=== PATIENT | male | born 1975 | race Caucasian/White ===

== ENCOUNTER 2023-06-13 15:33 | Outpatient (AMB) | payer OTHER, SELFPAY ==
--- NOTE | 2023-06-13 15:39 | A.OFFVIS_ITS ---
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 Required: No Allergies No Known Allergies Allergy (Verified 06/13/23 15:48) Medication List - Last Reconciled 06/13/23 by BRODY Vargas albuterol sulfate 90 mcg/actuation 2 puffs inhalation QID PRN amlodipine 10 mg PO DAILY aspirin 81 mg PO DAILY atorvastatin 20 mg PO DAILY chlorthalidone 25 mg PO QAM cholecalciferol (vitamin D3) 1,250 mcg PO QWEEK dulaglutide (Trulicity) mg subcut ferrous sulfate 325 mg PO QAM ferrous sulfate (FeroSul) 325 mg PO DAILY irbesartan 300 mg PO DAILY irbesartan 150 mg PO DAILY HPI HPI Comments History of Present Illness Details [place] [facility] [place] [facility] [place]. He heard about our program from his insurance company. His goal is to lose weight and achieve a healthy lifestyle as well as to improve, if not resolve, obesity related medical conditions, including DM, HTN, HLD. He reports first being concerned about his weight 18 yeard ago with dx of DM, highest weight to date was 325. Current weight is 308.6 pounds with a BMI of 43. He has tried multiple methods of weight loss including fad diets exercise, [facility] weight loss program without permanent results. He lives with his and son. 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 He wakes at:?7 am, and goes to bed at?10 pm. Dinner is at 6 pm. Breakfast: Pure protein bar or shake AM snack: skip Lunch: fast food PM snack: chips Dinner: pasta, burgers, mac and cheese, vegs After dinner: rare SF itialian ice or SF chocolate bars Other snacks: as above Liquids: 60-80 oz water, diet ole magaly, no juice Alcohol/marijuana/tobacco intake: no etoh, smoke cannabis 3 x per month, no tobacco Exercise: 3 x per week, walking 1.5 miles in 30 minutes. 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 Hx of foot surgery Hx of pelvic surgery Social History (Updated 06/13/23 @ 15:55 by Suzette Guajardo CMA) Alcohol intake: current Alcohol intake frequency: holidays/special occasions only Patient Tobacco Use Status: Never used Tobacco Review of Systems Const All systems reviewed & are unremarkable except as noted in HPI and below Physical Exam Vital Signs: Last Vital Signs Temp 98.6 F 06/13/23 15:59 Pulse 104 H 06/13/23 15:59 BP 142/78 H 06/13/23 15:59 Pulse Ox 95 06/13/23 15:59 Oxygen Delivery Method Room Air 06/13/23 15:59 BMI result Body Mass Index 43.0 Const General: cooperative, healthy appearing and no acute distress Orientation/consciousness: patient oriented x3 HEENT Head: Yes normal to inspection Ears: hearing grossly normal bilaterally General nose exam: Normal external nose present Face and sinus: Yes normal facial exam Eyes General: appearance normal, both eyes and all related structures Resp Effort & Inspection: normal respiratory effort Auscultation: clear to auscultation bilaterally Cardio Rate: regular rate Rhythm: regular rhythm Heart sounds: S1 normal heart sound present and S2 normal heart sound present GI Inspection: Yes normal to inspection, No distended and Yes obesity Palpation (GI): Soft to palpation, nontender and no guarding Auscultation: normal bowel sounds Skin General skin exam: no rashes or lesions noted Neuro General: patient oriented x3 Extrem General: No edema Psych Appearance: grossly normal Mental Status: mental status grossly normal Speech and movement: Normal speech and movement present Affect: normal affect Attitude: cooperative Assessment & Plan Assessment & Plan (1) Morbid obesity: Code(s): E66.01 - Morbid (severe) obesity due to excess calories Plan: This is a?48 yo male who will start our SWL program to prepare for bariatric surgery.? Blood work, h pylori , CXR, ECG, Abd US and UGI have been ordered. He is being scheduled for RD and BH initial consultations. He will start SWL classes and watch the first three videos before his next appointment. ? Adequate sleep of 7-8 hours per night discussed, awakening at 7 am and going to bed at 10 pm ? Purchase body composition analyzer scale (Zayda chapman or Ninfa recommended) and check weight weekly. The best time to do this is first thing in the morning after going to the bathroom. 1. Nutritional counseling: Be sure to careful read the number of scoops per shake Start with 3 Pure Protein shakes ([employer], [employer], [facility]), First shake, (1 scoop in 8 oz low fat unsweetened almond milk or water) at 8am- 10am, Second shake, (1 scoop in 8 oz unsweetened almond milk or water) at 12am-2pm 1 protein bar (Pure Protein bars at Target, [facility], or [employer]) at 3pm-5pm. Dinner at 6pm (9 forks of protein and 9 forks of salad/vegetables). Meal to include lean meat (beef, fish, pork, turkey, chicken), cooked vegetables or a salad with olive oil and/or fruits (berries, pears, apples, kiwi). Avoid salt, breads, potatoes, rice, pasta, desserts. Another shake with 1/2 scoop in 8 oz unsweetened almond milk at 8pm-10pm. Try to drink 64 oz of water daily and avoid soda and juices. ?2. Each shake would be drunk slowly, like coffee in a period of 2 hours. ?3. Cut each bar in 4 pieces and eat each piece in 30 min ?to make each bar last 2 hours. ?4. I emphasized the importance of measuring accurately the food portion and measure it carefully when serving the food on the plate ?5. The meal portions include 9 full-size forks of meat and 9 full-size forks of salad. You always eat the meat portion but you can replace up to half of the forks of salad/vegetables with rice, potatoes or pasta, or a fruit ?if you like. The less you do it the better weight loss will be. ?6. One full-size fork is what can be scooped on the fork without falling aside and not what can be bit with the fork. Use regular forks like those you find in a typical restaurant. ?7.? Please send me weight measurements as soon as possible and then once a week. Always include your diet and exercise plan. Alternatively come weekly at the office for weight checks and send me the measurements. ?8. Exercise counseling: Begin by watching a stretching for beginners video. Start slowly and begin to stretch your muscles. You should do this before and after each exercise session to prevent injury. You can consider joining the [facility] in [place] if you wish but certainly can use the exercise equipment that you have in your home. (If you went to the [facility] and had access to the Elliptical- start with a resistance of 2. Increase resistance by 1 every 3 min to your most comfortable resistance with a max resistance of 8. Reduce the resistance by 1 every 3 minutes back down to 2 and repeat cycles for 300 calories). Alternatively, start treadmill with a speed of 3.0 and incline of 0, increasing incline by 1 every 3 minutes to the highest comfortable level (max 6 for now) then decrease in the same fashion. Repeat process to a goal of 300 calories. Goal of 2000 calories burned or more weekly. You may also consider use of the stationary bike. The easiest would be to chose the fat-burn or interval training program on the machine and do this until you reach the 300 calorie goal. Alternatively, you can manually adjust the resistance in a similar fashion as mentioned above, (resistance of 2-8 with a goal speed of 12 mph). Tracking calories is essential. 9. Alternatively start walking outside daily, tracking calories with a goal of 300 calories per day, daily. You can download the marie Panl which can track your time, distance and calories while walking outside. You press start in the marie when you start and then stop when you are finished. 10.? It is important to communicate by text with me weekly, your weight and if you are having any problems with the plans. 11. Please get labs, EKG and chest X-Ray within 1 week. 12. Discussed and answered all questions regarding?obtained consent to participate in the [place] [facility]?Registry. 13. Please follow the diet plan exactly, without any change. If you do not like something about the plan or you feel hungry, you need to communicate with me so I can help you revise the plan. You should not change the plan yourself. Text me at [phone] 14. Goal is to lose at least 12 pounds in the first month 15. Goal is to lose 10% of your weight before surgery, which is about 30 lbs. Ultimate weight goal: 278 lbs before surgery Patient is morbidly obese and is not considered stable at this time.?I spent a total of 70 minutes reviewing/updating records, examining the patient and counseling the patient on weight management as detailed above. Coding Level of Care Code New Pt Level 5 (79707) Diagnoses Morbid obesity E66.01 Time Spent (min) 90
[2023-06-13 15:59] VITALS: BP 142/78; PULSE 104; TEMP 37; O2SAT 95; BMI 43.0
== END 2023-06-13 18:33 | disposition home or self-care (01) ==
PROVIDERS: PCP Internal Medicine; Visit Provider Physician Assistant Surgical
DX: E66.01 Morbid (severe) obesity due to excess calories (principal); Z68.41 Body mass index [BMI] 40.0-44.9, adult
CPT/HCPCS: 99205

== ENCOUNTER → 2023-06-13 15:33 | Outpatient (BNVA) | payer OTHER, SELFPAY | PROVIDERS: PCP Internal Medicine; Visit Provider Physician Assistant Surgical ==

== ENCOUNTER 2023-06-27 15:39 | Outpatient (AMB) | payer OTHER, SELFPAY ==
--- NOTE | 2023-06-27 15:37 | MHC.AMNUTRGE ---
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 starving . strongly dislikes it. 8-10am shake 1 scoop 25g Pure protein 10am protein bar another shake dinner: likes measuring food by bites , hates food scale. SWL online classes: none, will exempt pt from this Previous weight loss methods attempted Was at [facility] for over 2 years. waiting for surgeon to have availability. then got an infection in his foot, wasn;t able to have surgery until it resolved. met with RD's there, had all the education. Dietary counseling reduction Diagnosis Nutrition problem #1 overweight/obesity As related to (etiology) #1 excess energy intake and physical inactivity As evidenced by (sign/symptom) #1 high BMI Monitoring/Goals Nutrition problem monitoring total energy intake, level of knowledge/skill, total PRO intake, total CHO intake, weight and oral fluids Outcome progress progressing Learning/Education Readiness to learn excellent Stages of change action Educational materials provided Yes Most Recent Diabetes Results: No Data to Display [facility] Medical History (Updated 06/13/23 @ 18:18 by BRODY Vargas) Hemorrhage ant chamber eye Surgical History (Updated 06/13/23 @ 18:18 by BRODY Vargas) 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 Will meet with me in office instead in 4 weeks Telehealth Telehealth Location of provider rendering services: practice address Location of patient: address on file Patient Identification confirmed using: Name, : Yes Telehealth method: voice only Patient verbally consented to treatment: Yes Patient verbally consented to billing insurance company: Yes Patient informed of any privacy concerns related to visit: Yes Minutes spent on Phone/Video with Pt.: 20 Coding Level of Care Code Nutr Indiv Intake (21492) Diagnoses Morbid obesity E66.01 Diabetes E11.9 Time Spent (min) 20
== END 2023-06-27 16:04 | disposition home or self-care (01) ==
LOC: HO.HBS 15:39
PROVIDERS: PCP Internal Medicine; Referring Provider Physician Assistant Surgical; Visit Provider Dietitian, Registered
DX: E66.01 Morbid (severe) obesity due to excess calories (principal); E11.9 Type 2 diabetes mellitus without complications

== ENCOUNTER → 2023-06-27 15:39 | Outpatient (BNVA) | payer OTHER, SELFPAY | PROVIDERS: PCP Internal Medicine; Referring Provider Physician Assistant Surgical; Visit Provider Dietitian, Registered | DX: E66.01 Morbid (severe) obesity due to excess calories (principal); E11.9 Type 2 diabetes mellitus without complications; Z71.3 Dietary counseling and surveillance | CPT/HCPCS: 97802 ==

== ENCOUNTER 2023-07-12 14:25 | Outpatient (REF) | payer OTHER, SELFPAY ==
--- NOTE | ~2023-07-12 | XR_ITS ---
EXAMINATION: XR CHEST CLINICAL INFORMATION: Morbid severe obesity COMPARISON: None available. TECHNIQUE: 2 views of the chest were obtained. FINDINGS: No significant abnormality is noted involving the heart, lungs, mediastinum, bony thorax or soft tissues. XR/XR chest 2V IMPRESSION: Unremarkable examination.
--- NOTE | 2023-07-12 14:31 | ECG_ITS ---
Test Reason : OBESITY Blood Pressure : / mmHG Vent. Rate : 097 BPM Atrial Rate : 097 BPM P-R Int : 166 ms QRS Dur : 098 ms QT Int : 338 ms P-R-T Axes : 028 -20 012 degrees QTc Int : 429 ms Normal sinus rhythm Moderate voltage criteria for LVH, may be normal variant ( R in aVL , Chase product ) Borderline ECG No previous ECGs available Referred By: Shakir Mondragon Electronically Signed By:FÁTIMA MONET
[2023-07-12 15:11] LABS: MANUAL DIFF FLAG NO
[2023-07-12 15:28] LABS: Basophils Absolute Auto 0.1 X10*3/uL (0.0-0.2); Basophils Percent Auto 0.6 % (0-2); Eosinophils Absolute Auto 0.4 X10*3/uL (0.0-0.4); Eosinophils Percent Auto 3.6 % (0-4); Hemoglobin 12.6 g/dl (14.0-18.0); Imm Gran Abs Auto 0.04 X10*3/uL (0.00-0.03); Imm Gran Pct Auto 0.4 % (0.0-0.4); Lymphocytes Absolute Auto 2.1 X10*3/uL (1.2-4.9); Lymphocytes Percent Auto 21.4 % (20-40); Mean Corpuscular HGB Conc 33.2 g/dl (31.0-36.0); Mean Corpuscular Hemoglobin 27.7 pg (27.0-33.0); Mean Corpuscular Volume 83.5 fL (80.0-98.0); Mean Platelet Volume 9.8 fL (9.4-12.4); Monocytes Absolute Auto 0.8 X10*3/uL (0.1-1.2); Monocytes Percent Auto 7.7 % (2-11); Neutrophils Absolute Auto 6.5 x10*3/uL (2.0-8.3); Neutrophils Percent Auto 66.3 % (45-73); Platelet Count 254 X10*3/uL (160-400); Red Blood Count 4.55 X10*6/uL (4.60-5.80); Red Cell Distribution Width 13.8 % (11.0-16.0); White Blood Count 9.8 X10*3/uL (4.8-10.8)
[2023-07-12 16:25] LABS: Estimated Average Glucose 209 mg/dL; Hemoglobin A1c % 8.9 % (<6.0)
[2023-07-12 16:29] LABS: Alanine Aminotransferase 30 U/L (0-40); Albumin Level 4.2 g/dL (3.5-5.0); Alkaline Phosphatase 82 U/L (39-117); Anion Gap 15 (12-20); Aspartate Amino Transferase 22 U/L (5-37); Bilirubin Total 0.4 mg/dL (0.0-1.0); Blood Urea Nitrogen 35 mg/dL (9-16); C Reactive Protein 0.61 mg/dL (< or = 0.50); Calcium 10.2 mg/dL (8.4-10.2); Carbon Dioxide 22 mmol/L (22-29); Chloride 105 mmol/L (96-108); Cholesterol 134 mg/dL (<200); Estimated Glomerular Filt Rate > 60; Glucose Random 171 mg/dL (60-115); HDL Cholesterol 31 mg/dL (>40); Iron 65 mcg/dL (45-160); LDL Cholesterol Calculated 79 mg/dL (<100); Percent Iron Saturation 24 % (15-50); Potassium 4.4 mmol/L (3.3-5.1); Sodium 138 mmol/L (135-145); Total Iron Binding Capacity 266 mcg/dL (228-428); Total Protein 7.3 g/dL (6.5-8.0); Triglycerides 123 mg/dL (<150); Unsaturated Iron Binding 201 ug/dL
[2023-07-12 16:56] LABS: Ferritin 178 ng/mL (20-250); TSH reflex Free T4 1.04 uIU/mL (0.32-4.0); Vitamin D 25-OH Total 25.1 ng/mL (>30)
[2023-07-12 17:04] LABS: Folate 14.5 ng/mL (> or = 4.0); Vitamin B12 676 pg/mL (200-900)
[2023-07-13 15:42] LABS: Calcium (PTHI) 9.7 mg/dL (8.6-10.3); PTHI 57 pg/mL (16-77)
[2023-07-18 01:13] LABS: Zinc 72 mcg/dL (60-130)
[2023-07-18 14:44] LABS: Vitamin A 81 mcg/dL (38-98)
[2023-07-18 15:13] LABS: Vitamin B1 12 nmol/L (8-30)
== END 2023-07-12 14:26 | disposition home or self-care (01) ==
LOC: HO.LAB 14:25
PROVIDERS: PCP Internal Medicine; Visit Provider Physician Assistant Surgical
DX: E11.9 Type 2 diabetes mellitus without complications (principal); E66.01 Morbid (severe) obesity due to excess calories; E78.00 Pure hypercholesterolemia, unspecified; I10 Essential (primary) hypertension
CPT/HCPCS: 36415; 71046; 80053; 80061; 82306; 82607; 82728; 82746; 83036; 83540; 83970; 84425; 84443; 84590; 84630; 85025; 86140; 93005

== ENCOUNTER 2023-07-24 07:59 | Outpatient (REF) | payer OTHER, SELFPAY ==
--- NOTE | ~2023-07-24 | FL_ITS ---
EXAMINATION: XR FLUOROSCOPY UPPER GI WITH AIR CLINICAL INFORMATION: Preoperative bariatric. Patient has no specific complaints. COMPARISON: None relevant. TECHNIQUE: Fluoroscopic air contrast upper GI examination was performed utilizing standard techniques with thin and thick barium and effervescent granules. Numerous spot images were obtained. FINDINGS: Hypopharyngeal structures appear normal without evidence of mass or diverticulum. There was no significant cricopharyngeal achalasia. Dual and single contrast images of the esophagus demonstrate normal caliber, contour, and mucosal pattern. No evidence of stricture, mass, or ulcerations identified. Esophageal peristalsis was normal. No evidence of hiatus hernia identified. No significant gastroesophageal reflux was seen during the course of the examination and on reflux views. Dual contrast and single contrast images of the stomach demonstrated normal contour and mucosal pattern without evidence of mass, ulceration, or other abnormality. Contrast freely passed into the gastric antrum and duodenal bulb without delay. Single and air-contrast images of the duodenal bulb demonstrate no abnormality. The duodenal sweep has a normal appearance, course, and mucosal fold appearance. The imaged proximal jejunum has a normal fold pattern and caliber. FLUOROSCOPY TIME: 4.5 minutes Number of Spot Images: 31 DOSE AREA PRODUCT: 73.816 uGy-m2 (microgray-meter squared) FL/FL upper GI w air IMPRESSION: Normal upper GI examination.
[2023-07-27 13:47] LABS: H Pylori Breath Test Negative (Negative)
== END 2023-07-24 08:00 | disposition home or self-care (01) ==
LOC: HO.XRAY 07:59
PROVIDERS: PCP Internal Medicine; Visit Provider Physician Assistant Surgical
DX: E66.01 Morbid (severe) obesity due to excess calories (principal); E11.9 Type 2 diabetes mellitus without complications; E78.00 Pure hypercholesterolemia, unspecified; I10 Essential (primary) hypertension
CPT/HCPCS: 74246; 83013; 99211

== ENCOUNTER → 2023-07-24 08:00 | Outpatient (BNV) | payer OTHER, SELFPAY | PROVIDERS: PCP Internal Medicine; Visit Provider Radiology Diagnostic Radiology | DX: Z01.818 Encounter for other preprocedural examination (principal) | CPT/HCPCS: 74246 ==

== ENCOUNTER 2023-07-24 15:33 | Outpatient (AMB) | payer OTHER, SELFPAY ==
--- NOTE | 2023-07-24 15:04 | A.OFFVIS_ITS ---
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: No Allergies No Known Allergies Allergy (Verified 06/13/23 15:48) Medication List - Last Reconciled 07/24/23 by BRODY Vargas albuterol sulfate 90 mcg/actuation 2 puffs inhalation QID PRN amlodipine 10 mg PO DAILY aspirin 81 mg PO DAILY atorvastatin 20 mg PO DAILY chlorthalidone 25 mg PO QAM cholecalciferol (vitamin D3) 125 mcg PO DAILY 90 days dulaglutide (Trulicity) mg subcut ferrous sulfate (FeroSul) 325 mg PO DAILY irbesartan 300 mg PO DAILY irbesartan 150 mg PO DAILY HPI HPI Comments History of Present Illness Details The patient is a pleasant 48 year old male who returns to the clinic for pre-operative surgical weight loss management. They were last seen in the office on 06/13/23, recorded weight at that time was 308.6 pounds, with a BMI of 4 3. Today's weight is 300.3 pounds and BMI is 41.9. There has been a weight loss of 8.3 pounds since initiating the surgical weight loss program on 06/13/23 with a total body weight loss of 2.6 %. Pre op work up completed as follows: SWL classes:? [] BH appts: 07/20/23 ? ? RD appts: f/u 08/03/23 Labs: 07/12/23-HgbA1c:8.9, Low D H. pylori: 07/20/23 CXR: 07/12/23-nad EK07/12/23-nsr ABD U/S: 07/31/23 UGI: 07/24/23-normal The patient reports the first two weeks were difficult and over the last week he has had a in the family and his son left for college and he was unable to exercise. He is following the meal plan but sometimes having a little bit more of veg. and sometimes 10-12-15 forks. Doing Premier protein shakes, and pure protein bars. Current meal plan includes: 3 Pure Protein shakes (Target, [employer], [facility]), First shake, (1 scoop in 8 oz low fat unsweetened almond milk or water) at 8am- 10am, Second shake, (1 scoop in 8 oz unsweetened almond milk or water) at 12am-2pm 1 protein bar (Pure Protein bars at [employer], [facility], or [employer]) at 3pm-5pm. Dinner at 6pm (9 forks of protein and 9 forks of salad/vegetables). Another shake with 1/2 scoop in 8 oz unsweetened almond milk at 8pm-10pm. Drinking 128 oz of water Current exercise plan includes: walking outside 30-40 min 3-5 x per week, 250-300 calories. 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 Hx of pelvic surgery Hx of foot surgery Social History Alcohol intake: current Alcohol intake frequency: holidays/special occasions only Patient Tobacco Use Status: Never used Tobacco Review of Systems Const All systems reviewed & are unremarkable except as noted in HPI and below Assessment & Plan Assessment & Plan (1) Morbid obesity: Code(s): E66.01 - Morbid (severe) obesity due to excess calories Plan: change meal plan: 3 Premier Protein shakes (Target, [employer], [facility]), First shake, (2 scoops in 8 oz low fat unsweetened almond milk or water) at 8am- 10am, Second shake, (1 scoop in 8 oz unsweetened almond milk or water) at 12am-2pm 1 protein bar (Pure Protein bars at [employer], [facility], or [employer]) at 3pm-5pm. Dinner at 6pm (9 forks of protein and 9 forks of salad/vegetables). Another shake with 1 scoop in 8 oz unsweetened almond milk at 8pm-10pm. Encouraged treadmill and to increase exercise for goal of 2000 harpreet per week Decrease fluids to 64-80 oz daily of water rtc 3 weeks Medications: New cholecalciferol (vitamin D3) 125 mcg PO DAILY 90 caps 1RF 90 days Telehealth Telehealth Location of provider rendering services: practice address Location of patient: address on file Patient Identification confirmed using: Name, : Yes Telehealth method: video Patient verbally consented to treatment: Yes Patient verbally consented to billing insurance company: Yes Patient informed of any privacy concerns related to visit: Yes Minutes spent on Phone/Video with Pt.: 25 Coding Level of Care Code Tele Est Pt Level 3 (43466) Diagnoses Morbid obesity E66.01 Time Spent (min) 30
[2023-07-24 15:06] VITALS: BMI 41.9
== END 2023-07-24 15:40 | disposition home or self-care (01) ==
LOC: HO.HBS 15:33
PROVIDERS: PCP Internal Medicine; Visit Provider Physician Assistant Surgical
DX: E66.01 Morbid (severe) obesity due to excess calories (principal); Z68.41 Body mass index [BMI] 40.0-44.9, adult
CPT/HCPCS: 99213

== ENCOUNTER 2023-07-30 13:44 | Outpatient (AMB) | payer OTHER, SELFPAY ==
--- NOTE | 2023-07-30 13:43 | MHC.WMTHER ---
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 PT reports she's currently attending counseling to deal with life adjustments, however reports feeling well overall. Denies ever been hopsitalized for mental health, an/or in crisis, also denies any past/current concerns with self-harm an/or other-harm. Scores from BES showed lower risk for binge eating and PHQ-9 scores indicate minimal-no active Sx of depression. clearance is pending as pt was unable to do the full session, so we were unable to finish assessment. Presenting Concerns Referral Source P Provider, PT sees BRODY Bonner Reason for referral Completion of behavioral health assessment as part of process for weight-loss surgery. Precipitating Event Obesity. Living Situation Current Living Situation Own At risk of losing current housing? No Satisfied with current living situation? Yes Comments Pt lives with . Food/Weight/Diet Expectations of change Pt wants to be under 200Lbs. History/Relationship with food PT has a hard time feeling full, and finds himself always eating. Example of daily meal schedule Breakfast: Lunch: Dinner: Social History Family history and relationship 21 years ago. Pt has 2 brothers. Parents alive. Good family relationships. 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 23 year old girl and 18 year old son. Developmental history and status None reported. Social support . Community support None Jain/Spirituality grew up Episcopal but doesn't go to alevism. Cultural/Ethnic information Czech/telugu background. [place] Citizen. Legal Involvement and History Current or historical involvement with the legal system? None reported. Education Highest grade completed HS school Preferred learning style Visual Currently enrolled in educational program? No Interested in further educational program? 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 Wants help to find employment? No Meaningful activities Watching football games, ride motorcycle, naging out with friends. Financial Situation Describe current financial situation Comfortable Financial assistance? None Service Service? No Mental Health and Addiction Treatment Current/Past substance abuse? No Current/Past addictive behavior concerns? No Psychiatric history Currently sees a therapist every 2 weeks. Sees Kait Hart. Started services in February due adjustment to life changes in 2019 and stress due to health issues. Denies any history or recent concern with SI/SA. Medical and Physical Health Summary Additional Medical History not covered in history None reported Sexual History concerns None reported Physical exam in the last year? Yes Pain Screening Current pain? Yes Pain in the last few months? Yes Comments Knee and back pain. Medications Is the patient compliant with medications? Yes Does the patient have Hernandez Guardian in place? Not applicable Does the patient use complimentary health approaches? No Trauma/Abuse History History of trauma? No Questionnaires PHQ-9 Over the last 2 weeks, how often have you been bothered by any of the following problems? 1. Little interest or pleasure in doing things: not at all 2. Feeling down, depressed, or hopeless: not at all 3. Trouble falling or staying asleep, or sleeping too much: not at all 4. Feeling tired or having little energy: not at all 5. Poor appetite or overeating: several days 6. Feeling bad about yourself - or that you are a failure or have let yourself or your family down: not at all 7. Trouble concentrating on things, such as reading the newspaper or watching television: not at all 8. Moving or speaking so slowly that other people could have noticed. Or the opposite - being so fidgety or restless that you have been moving around a lot more than usual: not at all 9. Thoughts that you would be better off or of hurting yourself in some way: not at all Total score: 1 Depression Screening Interpretation: Negative 83274 - PHQ-9 Billing: Yes Source: Developed by Drs. Sascha Bae, Christine Arias, Rik Centeno and colleagues, with an educational ro from [employer]. Binge Eating Scale Group 1 A. I don't feel self-conscious about my wt. or body size when I'm with others. B. I feel concerned about how I look to others, but it normally does not make me fell disappointed with myself C. I do get self-conscious about my appearance and wt. which makes me feel disappointed in myself. D. I feel very self-conscious about my wt. and frequently I feel intense shame and disgust for myself. I try to avoid social contacts because of my self-consciousness. Response Group 1: A Group 2 A. I don't have any difficulty eating slowly in the proper manner. B. Although I seem to gobble down foods, I don't end up feeling stuffed because of eating to much. C. At times, I tend to eat quickly and then, I feel uncomfortably full afterwards. D. I have the habit of bolting down my food, without really chewing it. When this happens I usually feel uncomfortably stuffed because I've eaten to much. Response Group 2: A Group 3 A. I feel capable to control my eating urges when I want to. B. I feel like I have failed to control my eating more than the average person. C. I feel utterly helpless when it comes to feeling in control of my eating urges. D. Because I feel so helpless about controlling my eating I have become very desperate about trying to get control. Response Group 3: A Group 4 A. I don't have the habit of eating when I'm bored. B. I sometimes eat when I'm bored, but often I'm able to get busy and get my mind off food. C. I have a regular habit of eating when I'm bored, but occasionally, I can use some other activity to get my mind off eating. D. I have a strong habit of eating when I'm bored. Nothing seems to help me breath the habit. Response Group 4: B Group 5 A. I'm usually physically hungry when I eat something. B. Occasionally, I eat something on impulse even though I really am not hungry. C. I have the regular habit of eating foods, that I might not really enjoy, to satisfy a hungry feeling even though physically, I don't need the food. D. Although I'm not physically hungry, I get a hungry feeling in my mouth that only seems to be satisfied when I eat a food, like sandwich, that fills my mouth. Sometimes, when I eat the food to satisfy my mouth hunger, I then spit the food out so I won't gain weight. Response Group 5: B Group 6 A. I don't feel any guilt or self-hate after I overeat. B. After I overeat, occasionally I feel guilt or self-hate. C. Almost all the time I experience strong guilt or self-hate after I overeat. Response Group 6: A Group 7 A. I don't lose total control of my eating when dieting even after periods when I overeat. B. Sometimes when I eat a forbidden food on a diet, I feel like I blew it and eat even more. C. Frequently, I have the habit of saying to myself, I've blown it now, why not go all the way, when I overeat on a diet. When that happens I eat more. D. I have a regular habit of starting a strict diets for myself but I break the diets by going on an eating binge. My life seems to be either a feast or famine. Response Group 7: A Group 8 A. I rarely eat so much food that I feel uncomfortably stuffed afterwards. B. Usually about once a month, I each such a quantity of food, I end up feeling very stuffed. C. I have regular periods during the month when I eat large amounts of food, either at mealtime or at snacks. D. I eat so much food that I regularly feel quite uncomfortable after eating and sometimes a bit nauseous. Response Group 8: A Group 9 A. My level of calorie intake does not go up very high or go down very low on a regular basis. B. Sometimes after I overeat, I will try to reduce my caloric intake to almost nothing to compensate for the excess calories I've eaten. C. I have a regular habit of overeating during the night. It seems that my routine is not to be hungry in the morning but overeat in the evening. D. In my adult years, I have had week-long periods where I practically starve myself. This follows periods when I overeat. It seems I live a life of either feast or famine. Response Group 9: A Group 10 A. I usually am able to stop eating when I want to. I know when enough is enough. B. Every so often, I experience a compulsion to eat which I can't seem to control. C. Frequently, I experience strong urges to eat which I seem unable to control, but at other times I can control my eating urges. D. I feel incapable of controlling urges to eat. I have a fear of not being able to stop eating voluntarily. Response Group 10: A Group 11 A. I don't have any problem stopping eating when I feel full. B. I usually can stop eating when I feel full but occasionally overeat leaving me feeling uncomfortably stuffed. C. I have a problem stopping eating once I start and usually I feel uncomfortably stuffed after I eat a meal. D. Because I have a problem not being able to stop eating when I want, I sometimes have to induce vomiting to relieve my stuffed feeling. Response Group 11: A Group 12 A. I seem to eat just as much when I'm with others, Family social gatherings as when I'm by myself. B. Sometimes, when I'm with other persons, I don't eat as much as I want to eat because I'm self-conscious about my eating. C. Frequently, I eat only a small amount of food when others are present, because I'm very embarrassed about my eating. D. I feel so ashamed about overeating that I pick times to overeat when I know no one will see me. I feel like a closet eater. Response Group 12: B Group 13 A. I eat three meals a day with only an occasional between meal snack. B. I eat 3 meals a day, but I also normally snack between meals. C. When I am snacking heavily, I get in the habit of skipping regular meals. D. There are regular periods when I seem to be continually eating, with no planned meals. Response Group 13: A Group 14 A. I don't think much about trying to control unwanted eating urges. B. At least some of the time, I feel my thoughts are pre-occupied with trying to control my eating urges. C. I feel that frequently I spend much time thinking about how much I ate or about trying not to eat anymore. D. It seems to me that most of my waking hours are pre-occupied by thoughts about eating or not eating. I feel like I'm constantly struggling not to eat. Response Group 14: C Group 15 A. I don't think about food a great deal. B. I have strong craving for food but they last only for brief periods of time. C. I have days when I can't seem to think about anything else but food. D. Most of my days seem to be pre-occupied with thoughts about food. I feel like I live to eat. Response Group 15: A Group 16 A. I usually know whether or not I'm physically hungry. I take the right portion of food to satisfy me. B. Occasionally, I feel uncertain about knowing whether or not I'm physically hungry. A these times it's hard to know how much food I should take to satisfy me. C. Even though I might know how many calories I should eat, I don't have any idea what is a normal amount of food for me. Response Group 16: C Binge Eating Score: 7 Score less than 17 Minimal Risk Score between 18-26 Moderate Risk Score between 27-46 High Risk Assessment & Plan Assessment & Plan (1) Adjustment disorder, unspecified: Code(s): F43.20 - Adjustment disorder, unspecified Qualifiers: Adjustment disorder type: unspecified type Qualified Code(s): F43.20 - Adjustment disorder, unspecified Plan PT was unable to do the full session, so we will meet again to finish assessment. Next marie: TBD. Jones will be calling pt to schedule it. Telehealth Telehealth Location of provider rendering services: other Location of patient: other ([place], [place]) Patient Identification confirmed using: Name, : Yes Telehealth method: video Patient verbally consented to treatment: Yes Patient verbally consented to billing insurance company: Yes Patient informed of any privacy concerns related to visit: Yes Minutes spent on Phone/Video with Pt.: 45 Coding Level of Care Code New Pt Tele Psy Diag Salazar ([id number]) Patient Type New Diagnoses Adjustment disorder, unspecified type F43.20 Adjustment disorder type: unspecified type Time Spent (min) 45
== END 2023-07-30 14:22 | disposition home or self-care (01) ==
LOC: HO.HBST 13:44
PROVIDERS: PCP Internal Medicine; Visit Provider Counselor Mental Health
DX: F43.20 Adjustment disorder, unspecified (principal)
CPT/HCPCS: 90791

== ENCOUNTER → 2023-07-30 13:44 | Outpatient (BNVA) | payer OTHER, SELFPAY | PROVIDERS: PCP Internal Medicine; Visit Provider Counselor Mental Health ==

== ENCOUNTER 2023-08-03 15:27 | Outpatient (AMB) | payer OTHER, SELFPAY ==
--- NOTE | 2023-08-03 15:33 | MHC.AMNUTRGE ---
Intake Intake Visit Reasons: (OV) F/U SWL *DO NOT RESCHEDULE* Allergies No Known Allergies Allergy (Verified 06/13/23 15:48) HPI Nutrition Presentation Reason for consult elevated BMI Diet Assmnt Details Is doing well. speaks about feeling starving , thinks about food a lot , feels insatiable 8-10am shake 1 scoop 25g Pure protein 10am protein bar another shake dinner: likes measuring food by bites , hates food scale. SWL online classes: none, will exempt pt from this Exercise: walks 2-3 days per week 1.5 mile ; is at about 5x per week Previous weight loss methods attempted Was at [facility] for over 2 years. waiting for surgeon to have availability. then got an infection in his foot, wasn;t able to have surgery until it resolved. met with RD's there, had all the education. Dietary counseling reduction Diagnosis Nutrition problem #1 overweight/obesity As related to (etiology) #1 excess energy intake and physical inactivity As evidenced by (sign/symptom) #1 high BMI Monitoring/Goals Nutrition problem monitoring total energy intake, level of knowledge/skill, total PRO intake, total CHO intake, weight and oral fluids Outcome progress progressing Learning/Education Readiness to learn excellent Stages of change action Educational materials provided Yes Most Recent Diabetes Results: Cholesterol 134 mg/dL (<200) 07/12/23 HDL Cholesterol 31 mg/dL (>40) L 07/12/23 Triglycerides 123 mg/dL (<150) 07/12/23 Creatinine 1.27 mg/dL (0.5-1.4) 07/12/23 Blood Urea Nitrogen 35 mg/dL (9-16) H 07/12/23 Sodium 138 mmol/L (135-145) 07/12/23 Potassium 4.4 mmol/L (3.3-5.1) 07/12/23 Chloride 105 mmol/L (96-108) 07/12/23 Carbon Dioxide 22 mmol/L (22-29) 07/12/23 Calcium 10.2 mg/dL (8.4-10.2) 07/12/23 AST 22 U/L (5-37) 07/12/23 ALT 30 U/L (0-40) 07/12/23 Total Protein 7.3 g/dL (6.5-8.0) 07/12/23 Albumin 4.2 g/dL (3.5-5.0) 07/12/23 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 we also talked about hormonal influence with obesity, and also how having diabetes impacts this is well. I believe patient will be an excellent candidate. He will discuss necessary weight loss prior to surgery with PA or surgeon Coding Level of Care Code Nutr Indiv Subseq ([id number]) Diagnoses Morbid obesity E66.01 Time Spent (min) 45
== END 2023-08-03 16:29 | disposition home or self-care (01) ==
PROVIDERS: PCP Internal Medicine; Visit Provider Dietitian, Registered
DX: E66.01 Morbid (severe) obesity due to excess calories (principal)

== ENCOUNTER → 2023-08-03 15:27 | Outpatient (BNVA) | payer OTHER, SELFPAY | PROVIDERS: PCP Internal Medicine; Visit Provider Dietitian, Registered | DX: E66.01 Morbid (severe) obesity due to excess calories (principal); Z71.3 Dietary counseling and surveillance | CPT/HCPCS: 97803 ==

== ENCOUNTER 2023-08-15 10:48 | Outpatient (AMB) | payer OTHER, SELFPAY ==
--- NOTE | 2023-08-15 10:33 | MHC.OFFVISWM ---
Intake VS Expanded 08/15/23 10:35 Height 5 ft 11 in Weight 296 lb 8 oz BMI 41.3 Intake Visit Reasons: VIDEO F/U SWL Gravity Flow Irrigator Required: No Allergies No Known Allergies Allergy (Verified 06/13/23 15:48) Medication List - Last Reconciled 08/15/23 by BRODY Vargas albuterol sulfate 90 mcg/actuation 2 puffs inhalation QID PRN amlodipine 10 mg PO DAILY aspirin 81 mg PO DAILY atorvastatin 20 mg PO DAILY chlorthalidone 25 mg PO QAM cholecalciferol (vitamin D3) 125 mcg PO DAILY 90 days dulaglutide (Trulicity) mg subcut ferrous sulfate (FeroSul) 325 mg PO DAILY irbesartan 300 mg PO DAILY irbesartan 150 mg PO DAILY HPI HPI Comments History of Present Illness Details The patient is a pleasant 48 year old male who returns to the clinic for pre-operative surgical weight loss management. They were last seen in the office on 07/24/23, recorded weight at that time was 300.4 pounds, with a BMI of 41.9. Today's weight is 296.8 pounds and BMI is 41.4. There has been a weight loss of 11.8 pounds since initiating the surgical weight loss program on 06/13/23 with a total body weight loss of 3.8 %. Pre op work up completed as follows: SWL classes:? [] BH appts: 07/20/23 ? ? RD appts: f/u 08/03/23 Labs: 07/12/23-HgbA1c:8.9, Low D H. pylori: 07/20/23 CXR: 07/12/23-nad EK07/12/23-nsr ABD U/S: 07/31/23 UGI: 07/24/23-normal The patient reports he joined [employer] yesterday and is planning on going 3 days/week Current meal plan includes: 3 Premier Protein shakes ([employer], [employer], [employer]), First shake, (2 scoops in 8 oz low fat unsweetened almond milk or water) at 8am-10am, Second shake, (1 scoop in 8 oz unsweetened almond milk or water) at 12am-2pm 1 protein bar (Pure Protein bars at [employer], [facility], or [employer]) at 3pm-5pm. Dinner at 6pm (9 forks of protein and 9 forks of salad/vegetables). Another shake with 1 scoop in 8 oz unsweetened almond milk at 8pm-10pm. Drinking 60-80 oz of water Current exercise plan includes: walking outside 30-40 min 3 x per week, 250-275 calories. 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 Hx of pelvic surgery Hx of foot surgery Social History Alcohol intake: current Alcohol intake frequency: holidays/special occasions only Patient Tobacco Use Status: Never used Tobacco Assessment & Plan Assessment & Plan (1) Morbid obesity: Code(s): E66.01 - Morbid (severe) obesity due to excess calories Plan: Change meal plan slightly 3 Premier Protein shakes ([employer], [employer], [facility]), First shake, (1 scoop in 8 oz low fat unsweetened almond milk or water) at 8am-10am, Second shake, (1 scoop in 8 oz unsweetened almond milk or water) at 12am-2pm 1 protein bar (Pure Protein bars at [employer], [facility], or [employer]) at 3pm-5pm. Dinner at 6pm (9 forks of protein and 9 forks of salad/vegetables). Another shake with 1 scoop in 8 oz unsweetened almond milk at 8pm-10pm. Encouraged to go to gym 3 days per week and walk 3 days per week. Reminded of goal of 2000 harpreet burned weekly or more. RTC 3 weeks Telehealth Telehealth Location of provider rendering services: practice address Location of patient: other Patient Identification confirmed using: Name, : Yes Telehealth method: voice only Patient verbally consented to treatment: Yes Patient verbally consented to billing insurance company: Yes Patient informed of any privacy concerns related to visit: Yes Minutes spent on Phone/Video with Pt.: 12 Coding Level of Care Code Tele Est Pt Level 3 (83235) Diagnoses Morbid obesity E66.01 Time Spent (min) 18
[2023-08-15 10:35] VITALS: BMI 41.3
== END 2023-08-15 10:51 | disposition home or self-care (01) ==
LOC: HO.HBS 10:48
PROVIDERS: PCP Internal Medicine; Visit Provider Physician Assistant Surgical
DX: E66.01 Morbid (severe) obesity due to excess calories (principal); Z68.41 Body mass index [BMI] 40.0-44.9, adult
CPT/HCPCS: 99442

== ENCOUNTER → 2023-08-15 10:48 | Outpatient (BNVA) | payer OTHER, SELFPAY | PROVIDERS: PCP Internal Medicine; Visit Provider Physician Assistant Surgical ==

== ENCOUNTER 2023-09-17 11:30 | Outpatient (AMB) | payer OTHER, SELFPAY ==
--- NOTE | 2023-09-17 11:39 | MHC.WMTHER ---
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 PT is interested in bariatric surgery due to a life-long shaffer with his weight, he wants to be healthy and have quality of life. PT reports he's currently attending counseling to deal with life adjustments, however reports feeling well overall. Denies ever been hospitalized for mental health, and/or in crisis, also denies any past/current concerns with self-harm an/or other-harm. Scores from BES showed lower risk for binge eating and PHQ-9 scores indicate minimal-no active Sx of depression. Today Pt reported he's following meal plan and has lost about 15Lbs since stated the program, he's also exercising couple times at week, but is looking to start attending the [employer] to be consistent during winter. Today therapist reminded him of options for increase exercise and maintain habits that will support his weight-loss journey. Pt has been cleared today. Advised to follow up with me after surgery. Presenting Concerns Referral Source [facility] Provider, PT sees BRODY Bonner Reason for referral Completion of behavioral health assessment as part of process for weight-loss surgery. Precipitating Event Obesity. Living Situation Current Living Situation Own At risk of losing current housing? No Satisfied with current living situation? Yes Comments Pt lives with . Food/Weight/Diet Expectations of change Pt wants to be under 200Lbs. Initial goal is to lose 10% of his weight before surgery, which is about 30 lbs. Ultimate weight goal: 278 Lbs. before surgery History/Relationship with food PT has a hard time feeling full, and finds himself always eating. . Example of daily meal schedule Breakfast: eggs, cheese and a bagel. Lunch: fast food (dunking, [employer]) Dinner: spaghetti, pizza, pasta. what ever will cook. History/Relationship with weight Started gaining weight after age 23. 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 Lowest weight pass 5 years was 225Lbs in 2020 after being in the hospital. History/Relationship with dieting 2017 Weight management at [facility]. Ketto diet (2020), high protein diet, weightwatchers (2011) The most effective thing has been working out with healthy eating choices. Binge Eating Do you frequently eat large amounts of food in short periods of time, not feeling physically hungry? Yes Do you feel out of control when you eat a large amount of food in a short period of time? Yes Do you eat large amounts of food rapidly and typically alone? Yes Night Eating Do you wake up at least once during the night to eat? No If you wake up in the night, do you find that it is necessary to eat something in order to fall back asleep? No Do you have little or no appetite in the morning and feel very hungry in the evening, often overeating between dinner and when you go to bed? No Social History Family history and relationship 21 years ago. Pt has 2 brothers. Parents alive. Good family relationships. 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 23 year old girl and 18 year old son. Developmental history and status None reported. Social support . Community support None Muslim/Spirituality grew up Christian but doesn't go to scientology. Cultural/Ethnic information Iranian/citizen of [place] background. Egyptian. Legal Involvement and History Current or historical involvement with the legal system? None reported. Education Highest grade completed HS school Preferred learning style Visual Currently enrolled in educational program? No Interested in further educational program? 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 [employer] Wants help to find employment? No Meaningful activities Watching football games, ride motorcycle, naging out with friends. Financial Situation Describe current financial situation Comfortable Financial assistance? None Service Service? No Mental Health and Addiction Treatment Current/Past substance abuse? No Current/Past addictive behavior concerns? No Psychiatric history Currently sees a therapist every 2 weeks. Sees Kait Hart. Started services in February due adjustment to life changes in 2019 and stress due to health issues. Denies any history or recent concern with SI/SA. Medical and Physical Health Summary Additional Medical History not covered in history None reported Sexual History concerns None reported Physical exam in the last year? Yes Pain Screening Current pain? Yes Pain in the last few months? Yes Comments Knee and back pain. Medications Is the patient compliant with medications? Yes Does the patient have Hernandez Guardian in place? Not applicable Does the patient use complimentary health approaches? No Trauma/Abuse History History of trauma? No Questionnaires PHQ-9 Over the last 2 weeks, how often have you been bothered by any of the following problems? 1. Little interest or pleasure in doing things: not at all 2. Feeling down, depressed, or hopeless: not at all 3. Trouble falling or staying asleep, or sleeping too much: not at all 4. Feeling tired or having little energy: not at all 5. Poor appetite or overeating: several days 6. Feeling bad about yourself - or that you are a failure or have let yourself or your family down: not at all 7. Trouble concentrating on things, such as reading the newspaper or watching television: not at all 8. Moving or speaking so slowly that other people could have noticed. Or the opposite - being so fidgety or restless that you have been moving around a lot more than usual: not at all 9. Thoughts that you would be better off or of hurting yourself in some way: not at all Total score: 1 Depression Screening Interpretation: Negative Depression Screening Done: Yes 57253 - PHQ-9 Billing: Yes Source: Developed by Drs. Sascha Bae, Christine Arias, Rik Centeno and colleagues, with an educational ro from [employer]. Binge Eating Scale Group 1 A. I don't feel self-conscious about my wt. or body size when I'm with others. B. I feel concerned about how I look to others, but it normally does not make me fell disappointed with myself C. I do get self-conscious about my appearance and wt. which makes me feel disappointed in myself. D. I feel very self-conscious about my wt. and frequently I feel intense shame and disgust for myself. I try to avoid social contacts because of my self-consciousness. Response Group 1: A Group 2 A. I don't have any difficulty eating slowly in the proper manner. B. Although I seem to gobble down foods, I don't end up feeling stuffed because of eating to much. C. At times, I tend to eat quickly and then, I feel uncomfortably full afterwards. D. I have the habit of bolting down my food, without really chewing it. When this happens I usually feel uncomfortably stuffed because I've eaten to much. Response Group 2: A Group 3 A. I feel capable to control my eating urges when I want to. B. I feel like I have failed to control my eating more than the average person. C. I feel utterly helpless when it comes to feeling in control of my eating urges. D. Because I feel so helpless about controlling my eating I have become very desperate about trying to get control. Response Group 3: A Group 4 A. I don't have the habit of eating when I'm bored. B. I sometimes eat when I'm bored, but often I'm able to get busy and get my mind off food. C. I have a regular habit of eating when I'm bored, but occasionally, I can use some other activity to get my mind off eating. D. I have a strong habit of eating when I'm bored. Nothing seems to help me breath the habit. Response Group 4: B Group 5 A. I'm usually physically hungry when I eat something. B. Occasionally, I eat something on impulse even though I really am not hungry. C. I have the regular habit of eating foods, that I might not really enjoy, to satisfy a hungry feeling even though physically, I don't need the food. D. Although I'm not physically hungry, I get a hungry feeling in my mouth that only seems to be satisfied when I eat a food, like sandwich, that fills my mouth. Sometimes, when I eat the food to satisfy my mouth hunger, I then spit the food out so I won't gain weight. Response Group 5: B Group 6 A. I don't feel any guilt or self-hate after I overeat. B. After I overeat, occasionally I feel guilt or self-hate. C. Almost all the time I experience strong guilt or self-hate after I overeat. Response Group 6: A Group 7 A. I don't lose total control of my eating when dieting even after periods when I overeat. B. Sometimes when I eat a forbidden food on a diet, I feel like I blew it and eat even more. C. Frequently, I have the habit of saying to myself, I've blown it now, why not go all the way, when I overeat on a diet. When that happens I eat more. D. I have a regular habit of starting a strict diets for myself but I break the diets by going on an eating binge. My life seems to be either a feast or famine. Response Group 7: A Group 8 A. I rarely eat so much food that I feel uncomfortably stuffed afterwards. B. Usually about once a month, I each such a quantity of food, I end up feeling very stuffed. C. I have regular periods during the month when I eat large amounts of food, either at mealtime or at snacks. D. I eat so much food that I regularly feel quite uncomfortable after eating and sometimes a bit nauseous. Response Group 8: A Group 9 A. My level of calorie intake does not go up very high or go down very low on a regular basis. B. Sometimes after I overeat, I will try to reduce my caloric intake to almost nothing to compensate for the excess calories I've eaten. C. I have a regular habit of overeating during the night. It seems that my routine is not to be hungry in the morning but overeat in the evening. D. In my adult years, I have had week-long periods where I practically starve myself. This follows periods when I overeat. It seems I live a life of either feast or famine. Response Group 9: A Group 10 A. I usually am able to stop eating when I want to. I know when enough is enough. B. Every so often, I experience a compulsion to eat which I can't seem to control. C. Frequently, I experience strong urges to eat which I seem unable to control, but at other times I can control my eating urges. D. I feel incapable of controlling urges to eat. I have a fear of not being able to stop eating voluntarily. Response Group 10: A Group 11 A. I don't have any problem stopping eating when I feel full. B. I usually can stop eating when I feel full but occasionally overeat leaving me feeling uncomfortably stuffed. C. I have a problem stopping eating once I start and usually I feel uncomfortably stuffed after I eat a meal. D. Because I have a problem not being able to stop eating when I want, I sometimes have to induce vomiting to relieve my stuffed feeling. Response Group 11: A Group 12 A. I seem to eat just as much when I'm with others, Family social gatherings as when I'm by myself. B. Sometimes, when I'm with other persons, I don't eat as much as I want to eat because I'm self-conscious about my eating. C. Frequently, I eat only a small amount of food when others are present, because I'm very embarrassed about my eating. D. I feel so ashamed about overeating that I pick times to overeat when I know no one will see me. I feel like a closet eater. Response Group 12: B Group 13 A. I eat three meals a day with only an occasional between meal snack. B. I eat 3 meals a day, but I also normally snack between meals. C. When I am snacking heavily, I get in the habit of skipping regular meals. D. There are regular periods when I seem to be continually eating, with no planned meals. Response Group 13: A Group 14 A. I don't think much about trying to control unwanted eating urges. B. At least some of the time, I feel my thoughts are pre-occupied with trying to control my eating urges. C. I feel that frequently I spend much time thinking about how much I ate or about trying not to eat anymore. D. It seems to me that most of my waking hours are pre-occupied by thoughts about eating or not eating. I feel like I'm constantly struggling not to eat. Response Group 14: C Group 15 A. I don't think about food a great deal. B. I have strong craving for food but they last only for brief periods of time. C. I have days when I can't seem to think about anything else but food. D. Most of my days seem to be pre-occupied with thoughts about food. I feel like I live to eat. Response Group 15: A Group 16 A. I usually know whether or not I'm physically hungry. I take the right portion of food to satisfy me. B. Occasionally, I feel uncertain about knowing whether or not I'm physically hungry. A these times it's hard to know how much food I should take to satisfy me. C. Even though I might know how many calories I should eat, I don't have any idea what is a normal amount of food for me. 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 Client is cleared and there is no need for follow up before surgery, however it was advised to schedule a f/up post-surgery. Clinician also shared about available resources if ever in need to access additional support and has encourage client to participate in post-op groups. Telehealth Telehealth Location of provider rendering services: other Location of patient: other (Work. [facility]) Patient Identification confirmed using: Name, : Yes Telehealth method: video Patient verbally consented to treatment: Yes Patient verbally consented to billing insurance company: Yes Patient informed of any privacy concerns related to visit: No Minutes spent on Phone/Video with Pt.: 45 Coding Level of Care Code Established Pt Tele Psytx 45 mins (87088) Patient Type Established Diagnoses Adjustment disorder, unspecified F43.20 Time Spent (min) 45
== END 2023-09-17 12:15 | disposition home or self-care (01) ==
LOC: HO.HBST 11:38
PROVIDERS: PCP Internal Medicine; Visit Provider Counselor Mental Health
DX: F43.20 Adjustment disorder, unspecified (principal)
CPT/HCPCS: 90834

== ENCOUNTER → 2023-09-17 11:30 | Outpatient (BNVA) | payer OTHER, SELFPAY | PROVIDERS: PCP Internal Medicine; Visit Provider Counselor Mental Health ==

== ENCOUNTER 2023-09-21 10:46 | Outpatient (AMB) | payer OTHER, SELFPAY ==
--- NOTE | 2023-09-21 11:05 | A.OFFVIS_ITS ---
Intake VS Expanded 09/21/23 11:14 BP 140/73 H Blood Pressure Location Rt brachial Blood Pressure Position Sitting Pulse 106 H Pulse Source Pulse Oximeter Temp 96.9 F Temperature Source Tympanic Pulse Oximetry 95 Oxygen Delivery Method Room Air Height 5 ft 11 in Weight 293 lb 9.6 oz BMI 40.9 Body Fat % 38.8 Body Fat Mass 113.8 Fat Free Mass 179.6 Visceral Fat Rating 23.0 Body Water % 43.7 Body Water Mass 128.0 Muscle Mass/Score 170.8 Basal Metabolic Rate/Score 2,509 Intake Visit Reasons: (OV) F/U SWL (Shakir) Allergies No Known Allergies Allergy (Verified 06/13/23 15:48) HPI HPI Comments History of Present Illness Details The patient is a pleasant 48 year old male who returns to the clinic for pre-operative surgical weight loss management. They were last seen in the office on 07/24/23, recorded weight at that time was 300.4 pounds, with a BMI of 41.9. Today's weight is 293.6 pounds and BMI is 40.9. There has been a weight loss of 7 pounds since initiating the surgical weight loss program on 06/13/23. The patient acknowledged his goal to lose 30 lb to a weight of 278 lb to qualify for surgical weight loss. We reviewed his labs from 07/12/2023 and discussed his anemia; patient notes that his kidney doctor has previously placed him on iron supplements due to anemia. Patient has never had colorectal cancer screening and denies any lower GI symptoms and denies any family history. Patient denies any upper GI symptoms to explain his anemia Pre op work up completed as follows: SWL classes:? []/ BH appts: 07/20/23 ? ? RD appts: f/u cleared Labs: 07/12/23-HgbA1c:8.9, Low D H. pylori: neg CXR: 07/12/23-nad EK07/12/23-nsr ABD U/S: pending UGI: 07/24/23-normal, no HH The patient reports he joined [employer] yesterday and is planning on going 3 days/week, but notes he has not attained this goal yet. He denies intra-abd operations GERD 0 TAMMIE 1 ESS 6 QOL 30 Current meal plan includes: 3 Premier Protein shakes ([employer], [employer], [employer]), First shake, (2 scoops in 8 oz low fat unsweetened almond milk or water) at 8am- 10am, Second shake, (1 scoop in 8 oz unsweetened almond milk or water) at 12am-2pm 1 protein bar (Pure Protein bars at [employer], [employer], or [employer]) at 3pm-5pm. Dinner at 6pm (9 forks of protein and 9 forks of salad/vegetables). Another shake with 1 scoop in 8 oz unsweetened almond milk at 8pm-10pm. Drinking 60-80 oz of water Current exercise plan includes: walking outside 30-40 min 3 x per week, 250-275 calories. [employer] (seldom going) 3 x per week treadmill, 20 minutes, bike 20 minutes. 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 Hx of pelvic surgery Hx of foot surgery Social History Alcohol intake: current Alcohol intake frequency: holidays/special occasions only Patient Tobacco Use Status: Never used Tobacco Review of Systems Const All systems reviewed & are unremarkable except as noted in HPI and below Reports as per HPI Physical Exam On exam, the patient is in no acute distress and is nontoxic Sclera anicteric He is having no respiratory difficulty Abdomen is morbidly obese and nontender Results Reviewed Results Reviewed: labs 07/12/23 Hb 12.6 N/N Fe studies WNL; Plts 254K, wbc 9.8 BUN 35, Cr 1.27 HbA1C 8.9 Diag imaging Abd U/S pending UGI no HH CXR NAD Assessment & Plan Assessment & Plan (1) Morbid obesity: Code(s): E66.01 - Morbid (severe) obesity due to excess calories (2) Diabetes: Code(s): E11.9 - Type 2 diabetes mellitus without complications (3) HTN (hypertension): Code(s): I10 - Essential (primary) hypertension (4) Hypercholesterolemia: Code(s): E78.00 - Pure hypercholesterolemia, unspecified (5) SARA (obstructive sleep apnea): Comment: on CPAP Code(s): G47.33 - Obstructive sleep apnea (adult) (pediatric) Plan The patient is congratulated on his interval weight loss but acknowledge that he is seldom exercising. He is doing better with his diet, and has lost some weight, the importance of diet and increased activity to augment surgical weight loss operations was discussed as well as the risk of weight regain if maladaptive eating continues. The importance of tracking calories burned with various gym activities was discussed again. The patient's goal weight and weight loss requirements were discussed. Given the hemoglobin A1c, and anemia, additional information from the patient's PCP is forthcoming and I will see the patient back in 3 weeks. At that time, I will repeat fasting labs given the patient's elevated hemoglobin A1c, elevated BUN. Patient's abdominal ultrasound is pending. Coding Level of Care Code Est Pt Level 4 (94572) Diagnoses Morbid obesity E66.01 Diabetes E11.9 HTN (hypertension) I10 Hypercholesterolemia E78.00 SARA (obstructive sleep apnea) G47.33
[2023-09-21 11:14] VITALS: BP 140/73; PULSE 106; TEMP 36.1; O2SAT 95; BMI 40.9
== END 2023-09-21 11:45 | disposition home or self-care (01) ==
PROVIDERS: PCP Internal Medicine; Referring Provider Physician Assistant Surgical; Visit Provider Surgery
DX: E66.01 Morbid (severe) obesity due to excess calories (principal); E11.9 Type 2 diabetes mellitus without complications; I10 Essential (primary) hypertension; E78.00 Pure hypercholesterolemia, unspecified; G47.33 Obstructive sleep apnea (adult) (pediatric)
CPT/HCPCS: 99214

== ENCOUNTER → 2023-09-21 10:46 | Outpatient (BNVA) | payer OTHER, SELFPAY | PROVIDERS: PCP Internal Medicine; Referring Provider Physician Assistant Surgical; Visit Provider Surgery ==

== ENCOUNTER 2023-10-26 08:00 | Outpatient (REF) | payer OTHER, SELFPAY ==
--- NOTE | ~2023-10-26 | US_ITS ---
EXAMINATION: US COMPLETE ABDOMEN WITH LIVER ELASTOGRAPHY CLINICAL INFORMATION: Obesity. COMPARISON: None available. TECHNIQUE: Real-time imaging of the abdominal viscera. Noninvasive ultrasound liver fibrosis assessment is performed using Chris ElastPQ point quantification shear wave elastography (2D-SWE) with a C5-2 MHz transducer. Multiple elastography samples are obtained. FINDINGS: PANCREAS: Normal. The visualized pancreatic head and body are normal in appearance. The remainder of the pancreas is obscured from visualization by the overlying bowel gas. ABDOMINAL AORTA: The proximal and distal aortic segments are normal in caliber. The mid segment is partially obscured by overlapping bowel gas. INFERIOR VENA CAVA: Visualized portions are normal. LIVER: The liver demonstrates normal contour and increased echogenicity. No focal lesion or intrahepatic biliary duct dilatation. The right lobe measures 17.7 cm in length. The left lobe measures 10.4 cm in length. Portal flow is towards the liver (hepatopetal). Shear wave liver elastography median stiffness is 1.06 m/s (reference: normal median stiffness is 1.3 m/s or less). IQR/median stiffness to assess sampling precision is 0.29 (reference: good quality data set is IQR/median stiffness of 0.15 or less). GALLBLADDER: Normal. The gallbladder is physiologically distended without evidence of stones, sludge, polyps, wall thickening or pericholecystic fluid. COMMON BILE DUCT: Normal in caliber measuring 0.3 cm in diameter. RIGHT KIDNEY: Normal. No hydronephrosis. No renal calculi or focal parenchymal lesions. The kidney measures 13.7 cm in maximum dimension. LEFT KIDNEY: Normal. No hydronephrosis. No renal calculi or focal parenchymal lesions. The kidney measures 14.6 cm in maximum dimension. SPLEEN: Normal. The spleen measures 12.3 cm in maximum dimension. FREE FLUID: None. US/US abdomen comp w elastography IMPRESSION: 1. There is generalized increase in hepatic echotexture, consistent with fatty infiltration or hepatocellular disease. Please correlate clinically. No focal hepatic mass or intrahepatic biliary dilatation is seen. 2. There is mild hepatomegaly. 3. Liver elastography: Measurements are consistent with a high probability of normal liver stiffness. 4. Technically limited ultrasound examination of the pancreas and abdominal great vessels. REFERENCE: Society of Radiologists in Ultrasound Liver Stiffness Thresholds (2020): LIVER STIFFNESS THRESHOLDS: *Liver Stiffness equal or less than 1.3 m/s: High probability of being normal. *Liver Stiffness less than 1.7 m/s: In the absence of other known clinical signs, rules out compensated advanced chronic liver disease. *Liver Stiffness 1.7-2.1 m/s: Suggestive of compensated advanced chronic liver disease but need further test for confirmation. *Liver Stiffness over 2.1 m/s: Rules in compensated advanced chronic liver disease. *Liver Stiffness over 2.4 m/s: Suggestive of clinically significant portal hypertension. QUALITY OF DATA SET: *IQR/Median value equal or less than 0.15 implies a quality data set. *IQR/Median value over 0.15 implies a poor quality data set. SIGNIFICANT CHANGE FROM PRIOR EXAM: Significant change if liver stiffness measurement is 10% or greater from prior exam. OTHER CONSIDERATIONS: The stage of liver fibrosis may be overestimated in the setting of acute hepatitis, liver inflammation, elevated liver function tests, hepatic vascular congestion, obstructive cholestasis, non-fasting state, and infiltrative diseases such as amyloidosis and lymphoma. In some patients with NAFLD, the liver stiffness thresholds for compensated advanced chronic liver disease may be lower. In causes other than viral hepatitis and NAFLD, liver stiffness thresholds are not well established.
== END 2023-10-26 08:01 | disposition home or self-care (01) ==
LOC: HO.US 08:00
PROVIDERS: PCP Internal Medicine; Visit Provider Physician Assistant Surgical
DX: E66.01 Morbid (severe) obesity due to excess calories (principal); E11.9 Type 2 diabetes mellitus without complications; E78.00 Pure hypercholesterolemia, unspecified; I10 Essential (primary) hypertension
CPT/HCPCS: 76705; 76981